=== PATIENT | female | born 1975 | race Caucasian/White ===

== ENCOUNTER 2024-08-09 22:14 | Emergency (ER) | payer OTHER, SELFPAY ==
[2024-08-09 22:20] VITALS: BP 158/78; PULSE 107; RESP 16; TEMP 38.2; O2SAT 96; BMI 27.4
[2024-08-09 22:23] VITALS: BP 158/78; PULSE 107; RESP 16; TEMP 38.2; O2SAT 98
--- NOTE | 2024-08-09 22:46 | CT_ITS ---
PROCEDURE: BRAIN/HEAD WITHOUT CONTRAST 08/09/2024 REASON FOR EXAM: BLURRY VISION/DIZZINESS TECHNIQUE: Head CT without intravenous contrast. Coronal and Sagittal reconstruction series were provided. One or more dose reduction techniques were used (e.g., Automated exposure control, adjustment of the mA and/or kV according to patient size, use of iterative reconstruction technique. COMPARISON: None FINDINGS: Brain: No evidence of an acute infarct. No intracranial hemorrhage. No extra- axial collection. No suspicious intracranial mass. Macias-white matter differentiation is within normal limits. CSF Spaces: Normal Sinuses/Mastoids: Clear at visualized levels Bones: Unremarkable. Extracranial soft tissues are within normal limits. CT/Brain/Head without Contrast IMPRESSION: NO ACUTE FINDINGS2 Reading Location: [facility]
--- NOTE | 2024-08-09 22:47 | EKG12_ITS ---
Test Reason : DYSRHYTHMIA Blood Pressure : */* mmHG Vent. Rate : 100 BPM Atrial Rate : 100 BPM P-R Int : 180 ms QRS Dur : 80 ms QT Int : 352 ms P-R-T Axes : 37 18 31 degrees QTcB Int : 454 ms Normal sinus rhythm Normal ECG Confirmed by Esa Britton ([id number]), editorial intern ROGER LOCK ([id number]) on 08/15/2024 1:01:27 PM Referred By: BATOOL Confirmed By: Esa Britton
[2024-08-09 22:48] VITALS: BP 141/75; BP 144/90; BP 146/83; PULSE 106; PULSE 107; PULSE 110
--- NOTE | 2024-08-09 22:53 | EDS_ITS ---
HPI History of Present Illness Chief Complaint: Fever Narrative Narrative: Chief complaint and HPI: Fever, nausea and vomiting. 49-year-old female without any significant past medical history who presents for evaluation of fever nausea and vomiting. Onset of symptoms yesterday evening. Patient states that she has had a fever in which she has not taken any OTC medications. She is Alvaro has been using herbal remedies. She states that she has had nonbloody/nonbilious emesis. She endorses intermittent blurry vision but when I have her describe this more it sounds like she is endorsing more dizziness. She denies any vertigo, seeing double. She denies any headache, neck pain, chest pain, shortness of breath, cough, dysuria, hematuria, constipation, diarrhea. Associated symptom is decreased p.o. intake. She denies any sick contacts that she knows of. Denies any rash. No sick contacts that she knows Review of systems: See HPI Medications: As listed on the chart Allergies: As listed on the chart PFSH: Per chart Vital signs: As listed on the chart. Reviewed. Physical exam: Gen: A&O x3, NAD Head: Normocephalic, atraumatic Eyes: No sclera icterus, conjunctiva clear, PERRL, EOMI. No periorbital swelling or ecchymosis, no proptosis, no pain with extra ocular movements, no sclera chemosis or injection ENT: TMs clear BL, mildly dry mucous membranes, posterior oropharynx unremarkable, uvula midline, tonsils not enlarged, no tonsillar exudates Neck: Trachea midline, No JVD, Full ROM, No meningismus CV: Tachycardic, regular rhythm, no murmurs, no peripheral edema Resp: Lungs CTA BL, no w/r/c GI: Abd soft, non-distended, non-tender, no r/r/g : No CVA tenderness Musc: Full ROM, no deformity Skin: Warm, dry, no rash Neuro: Alert, oriented, grossly intact, sensation intact Psych: Cooperative, appropriate mood and affect PFS PFS Medical History no medical history Home Medications ?Medication ?Instructions ?Recorded ?Last Taken ?Type cephalexin 500 mg capsule 500 mg PO Q12 #14 CAPSULES 0 08/10/24 Unknown Rx ondansetron 4 mg disintegrating 4 mg PO Q8H PRN PRN Na usea #10 tabs 08/10/24 Unknown Rx tablet Allergy/AdvReac Type Severity Reaction Status Date / Time No Known Allergies Allergy Verified 08/09/24 22:23 Family History no significant family his Surgical History no surgical history Social History Smoking Status: Never smoker EXAM Physical Exam Const Vital Signs: 08/09/24 22:20 08/09/24 22:23 08/09/24 22:25 Temperature 100.7 F H 100.7 F H Temperature Source Oral Oral Pulse Rate 107 H 107 H Pulse Rate [Lying] Pulse Rate [Sitting (for 1 minute prior to obtaining)] Pulse Rate [Standing (for 1 minute prior to obtaining)] Respiratory Rate 16 16 Respiratory Effort Normal Respiratory Pattern Normal Blood Pressure 158/78 H 158/78 H Blood Pressure [Lying] Blood Pressure [Sitting (for 1 minute prior to obtaining)] Blood Pressure [Standing (for 1 minute prior to obtaining)] Blood Pressure Mean 104 104 Blood Pressure Mean [Lying] Blood Pressure Mean [Sitting (for 1 minute prior to obtaining)] Blood Pressure Mean [Standing (for 1 minute prior to obtaining)] Pulse Ox 96 98 Oxygen Delivery Method Room Air Room Air 08/09/24 22:48 08/09/24 23:23 08/10/24 00:00 Temperature 100.2 F H 97.9 F Temperature Source Oral Oral Pulse Rate 102 H 97 Pulse Rate [Lying] 107 H Pulse Rate [Sitting (for 1 minute prior to obtaining)] 106 H Pulse Rate [Standing (for 1 minute prior to obtaining)] 110 H Respiratory Rate 16 18 Respiratory Effort Respiratory Pattern Blood Pressure 135/77 H 139/80 H Blood Pressure [Lying] 146/83 H Blood Pressure [Sitting (for 1 minute prior to obtaining)] 141/75 H Blood Pressure [Standing (for 1 minute prior to obtaining)] 144/90 H Blood Pressure Mean 96 99 Blood Pressure Mean [Lying] 104 Blood Pressure Mean [Sitting (for 1 minute prior to obtaining)] 97 Blood Pressure Mean [Standing (for 1 minute prior to obtaining)] 108 Pulse Ox 97 97 Oxygen Delivery Method Room Air Room Air 08/10/24 00:16 Temperature 97.7 F L Temperature Source Oral Pulse Rate 94 Pulse Rate [Lying] Pulse Rate [Sitting (for 1 minute prior to obtaining)] Pulse Rate [Standing (for 1 minute prior to obtaining)] Respiratory Rate 22 H Respiratory Effort Respiratory Pattern Blood Pressure 139/80 H Blood Pressure [Lying] Blood Pressure [Sitting (for 1 minute prior to obtaining)] Blood Pressure [Standing (for 1 minute prior to obtaining)] Blood Pressure Mean 99 Blood Pressure Mean [Lying] Blood Pressure Mean [Sitting (for 1 minute prior to obtaining)] Blood Pressure Mean [Standing (for 1 minute prior to obtaining)] Pulse Ox 96 Oxygen Delivery Method Room Air MDM MDM MDM Narrative Medical decision making narrative: 49-year-old female without any significant past medical history who presents for evaluation of fever, nausea, and vomiting. Onset of symptoms yesterday evening. Associated symptom is mild dizziness and intermittent blurry vision. On presentation, patient is mildly hypertensive with mild tachycardia and febrile. I suspect her tachycardia is secondary to fever and decreased p.o. intake. She is nontoxic. No signs of meningismus. No rash. Differential diagnosis includes but is not limited to viral illness, dehydration, TERRY, UTI, pneumonia, suspect less likely to cranial abnormality. Abdominal exam is benign therefore I do not think any imaging of the abdomen is needed at this time. Orthostatic vital signs will be obtained as well as visual acuity. Tylenol and Zofran ordered for symptoms. Visual acuity is 20/40 in both eyes individually. 20/25 with both eyes open. Orthostatic vital signs negative. CBC without leukocytosis or anemia. Platelet count unremarkable. CMP unremarkable except for mild dehydration without TERRY. No transaminitis. Lipase unremarkable. CBC without leukocytosis or anemia. UA positive for UTI. Urine culture obtained. Rocephin ordered. CT head shows no acute abnormality. COVID, flu, RSV negative. Patient's symptoms are likely secondary to UTI. She has no CVA tenderness to indicate pyelonephritis. No leukocytosis. On reevaluation, patient's fever has resolved along with her tachycardia. She was able to tolerate p.o. intake without difficulty. Patient was updated of all the results and the plan for discharge home. She will be given a prescription for Keflex as well as Zofran. Educated on taking Tylenol and Motrin for fever. Return precautions explained. Follow-up with PCP. I do not have a clear etiology for patient's blurred vision. May be secondary to mild dehydration. Recommend following up with an eye doctor if continues. EKG: Interpreted by me/EM physician: EKG shows normal sinus rhythm. No acute ischemic changes. Heart rate 100. Diagnostic: Interpreted by me/EM physician: Chest x-ray without pneumonia, effusion, cardiomegaly, pneumothorax radiology in agreement. Impression: 1. UTI 2. Fever 3. Nausea vomiting 4. Reported blurry vision Lab Data Labs: Laboratory Results - last 24 hr 08/09/24 08/09/24 22:00 23:02 WBC 6.9 RBC 4.92 Hgb 14.7 Hct 41.9 MCV 85.2 MCH 29.9 MCHC 35.1 RDW Std Deviation 35.3 RDW Coeff of [place] 11.5 L Plt Count 232 MPV 9.9 Immature Gran % (Auto) 0.300 Neut % (Auto) 67.4 Lymph % (Auto) 9.8 L [place] % (Auto) 21.7 H Eos % (Auto) 0.1 Baso % (Auto) 0.7 Absolute Neuts (auto) 4.7 Absolute Lymphs (auto) 0.68 L Nucleated RBC % 0 Sodium 130 L Potassium 4.0 Chloride 97 L Carbon Dioxide 21.5 Anion Gap 11 BUN 16 Creatinine 0.92 Estim Creat Clear Calc 71.44 Est GFR (MDRD) Non-Af 76 BUN/Creatinine Ratio 17.2 Glucose 139 H Calcium 8.7 Total Bilirubin 0.31 AST 24 ALT 23 Alkaline Phosphatase 97 Total Protein 7.6 Albumin 4.2 Globulin 3.4 Albumin/Globulin Ratio 1.2 Lipase 33 Urine Color Yellow Urine Clarity Cloudy Urine pH 7.0 Ur Specific [place] 1.010 Urine Protein 100 H Urine Glucose (UA) Normal Urine Ketones Negative Urine Occult Blood 50 H Urine Nitrite Positive H Urine Bilirubin Negative Urine Urobilinogen Normal Ur Leukocyte Esterase 500 H Urine RBC 5-10 SEEN Urine WBC 25-50 SEEN Ur Squamous Epith Cells 0-5 SEEN Urine Bacteria 1+ Urine Mucus 0 SEEN Urine Test Negative Radiography Diagnostic Testing: Clinical Impression(s) from Imaging Studies Brain CT 08/09/24 22:46 IMPRESSION: NO ACUTE FINDINGS2 Reading Location: [facility] Chest X-Ray 08/09/24 23:30 IMPRESSION: NO ACUTE FINDINGS. Reading Location: [facility] Discharge Plan Triage Chief Complaint: Fever ED Provider: Héctor Lechuga Dx/Rx/DC Orders Clinical Impression: UTI (urinary tract infection), Fever Instructions: Urinary Tract Infections in Women, ED Fever Control (Adult) Prescriptions: New ondansetron 4 mg tablet,disintegrating 4 mg PO Q8H PRN PRN (Reason: Nausea) Qty: 10 0RF cephalexin 500 mg capsule 500 mg PO Q12 Qty: 14 0RF Primary Care Provider: Henrry Cuenca Referrals: Henrry Cuenca, [Primary Care Provider] - 3-5 Days Activity Restrictions/Additional Instructions: Take Tylenol and Motrin as needed for fever. You did receive Tylenol here in the emergency department. No Tylenol for 6 hours. Zofran as needed for nausea. Received Zofran here in the emergency department. No Zofran for 8 hours. Follow-up with PCP. Take all of your antibiotics. Return back to the ED if symptoms change or worsen. If blurry vision continues, follow-up with eye doctor Print Language: Luxembourgish Disposition Disposition: Home, Self Care
[2024-08-09 23:00] LABS: Absolute Lymphocyte Count 0.68 X10^3/uL (0.83-4.51); Absolute Neutrophil Count 4.7 X10^3/uL (2.0-7.7); Basophil# 0.05 X10^3/uL; Basophil% 0.7 % (0-1); Eosinophil# 0.01 X10^3/uL; Eosinophils% 0.1 % (0-5); Hematocrit 41.9 % (37-47); Hemoglobin 14.7 g/dL (12.0-15.0); Lymphocyte # 0.68 X10^3/ul (0.83-4.51); Lymphocyte % 9.8 % (19-41); Mean Corp Hgb Conc 35.1 g/dL (32-36); Mean Corpuscular Hgb 29.9 pg (27.0-32.0); Mean Corpuscular Volume 85.2 fL (81-99); Mean Platelet Vol. 9.9 fl (6.2-12.0); Monocyte% 21.7 % (0-10); NRBC Flagged by Analyzer 0 % (0-5); Neutrophil # 4.66 X10^3/uL (2.7-7.7); Neutrophil % 67.4 % (47-70); Platelet Count 232 K/mm3 (150-450); RBC Distribution Width CV 11.5 % (11.6-14.6); RBC Distribution Width SD 35.3 fl (35.1-43.9); Red Blood Count 4.92 M/mm3 (4.2-5.4); White Blood Count 6.9 K/mm3 (4.4-11.0)
[2024-08-09] MEDS: 0.9% Normal Saline (1000mL) 1,000 ML 1000 ML IV (23:10)
[2024-08-09] MEDS: Acetaminophen 500 MG Tablet 1000 MG PO (23:10)
[2024-08-09] MEDS: Ondansetron 4 MG/2 ML Vial IV (23:10)
[2024-08-09 23:16] LABS: ALB/GLOB Ratio 1.2 RATIO (0.9-2.4); AST(SGOT) 24 U/L (<=31); Alanine Aminotransfer ALT/SGPT 23 U/L (<=34); Albumin, Serum 4.2 g/dL (3.5-5.0); Alkaline Phosphatase 97 U/L (35-104); Anion Gap 11 (5-15); BUN 16 mg/dL (4-19); BUN/Creat Ratio 17.2 RATIO (10-20); Calcium,Total 8.7 mg/dL (7.6-11.0); Carbon Dioxide 21.5 mmol/L (21.0-32.0); Chloride 97 mmol/L (98-108); Creatinine, Serum 0.92 mg/dL (0.70-1.20); EST Glomerular Filtration Rate 76 (>60); Estimated Creatinine Clearance 71.44 ml/min (50-250); Globulin 3.4 g/dL (2.2-4.2); Glucose 139 mg/dL (70-99); Lipase 33 U/L (13-75); Protein, Total 7.6 g/dL (5.9-8.4); Sodium Level 130 mmol/L (133-145); Total Bilirubin 0.31 mg/dL (0.00-1.30)
[2024-08-09 23:23] VITALS: BP 135/77; PULSE 102; RESP 16; TEMP 37.9; O2SAT 97
[2024-08-09 23:24] LABS: Mucous, Urine 0 SEEN /hpf (<or=2+)
--- NOTE | 2024-08-09 23:30 | RAD_ITS ---
PROCEDURE: CHEST PA AND LATERAL 08/09/2024 REASON FOR EXAM: FEVER TECHNIQUE: Frontal and lateral views of the chest. COMPARISON: None FINDINGS: Hardware: None Heart: The heart size is normal. Mediastinum: The mediastinal contour is unremarkable. Lungs: No focal consolidation. No pneumothorax. No pleural effusion. Bones: The bones are unremarkable. RAD/Chest PA and Lateral IMPRESSION: NO ACUTE FINDINGS. Reading Location: [facility]
[2024-08-09 23:35] LABS: Color, Urine Yellow (Yellow); Glucose, Dipstick Normal (Normal); Ketone-Dipstick Negative (Negative); Leukocyte Esterase-Dipstick 500 /ul (Negative); Nitrite-Dipstick Positive (Negative); Occult Blood-Urine 50 /ul (Negative); Protein-Dipstick 100 mg/dl (Negative); Urine Bilirubin Dipstick Negative (Negative); Urine Clarity Cloudy (Clear); Urine Urobilinogen Normal (Normal)
[2024-08-09 23:39] LABS: Internal QC Validated? YES +Cl - CLEAR BKGD; Pregnancy, Urine Negative Negative
[2024-08-09 23:57] LABS: Bacteria 1+ /hpf (None Seen)
[2024-08-09 23:58] LABS: Red Blood Cells-Urine 5-10 SEEN /hpf (0-5); White Blood Cells 25-50 SEEN /hpf (0-5)
[2024-08-10] VITALS: BP 139/80; PULSE 97; RESP 18; TEMP 36.6; O2SAT 97
[2024-08-10] LABS: Squamous Epithelial Cells - UA 0-5 SEEN /hpf (5-10)
[2024-08-10 00:16] VITALS: BP 139/80; PULSE 94; RESP 22; TEMP 36.5; O2SAT 96
[2024-08-10] MEDS: Ceftriaxone 1 GM/50 ML BAG IV (00:42)
[2024-08-10 01:04] VITALS: BP 138/78; PULSE 88; RESP 16; TEMP 36.5; O2SAT 97
== END 2024-08-10 01:21 | disposition home or self-care (01) ==
PROVIDERS: Emergency Provider Surgery; PCP Family Medicine; Visit Provider Surgery
DX: N39.0 Urinary tract infection, site not specified (principal); H53.8 Other visual disturbances; R50.9 Fever, unspecified
CPT/HCPCS: 70450; 71046; 80053; 81001; 81025; 83690; 85025; 87077; 87086; 87088; 87186; 87631; 93005; 96361; 96365; 96375; 99285; A4216; J2405